=== PATIENT | male | born 1970 | race Caucasian/White ===

== ENCOUNTER 2017-04-10 11:25 | Emergency (ER) | payer MEDICAID, OTHER ==
[~2017-04-10] VITALS: Ht 160 cm; Wt 73.0 kg
[~2017-04-10 11:25] MED LIST: IBUP-974 PO
[2017-04-10 11:30] VITALS: BP 208/101
--- NOTE | 2017-04-10 11:50 | NUR ---
47M BIB SELF WITH C/O 6/10 "SHARP" INTERMITTENT NON RADIATING RIGHT UPPER CHEST PAIN WITH DIZZINESS X 1 DAY; PT STS HE WAS WALKING TO HIS CAR WHEN CP STARTED YESTERDAY; PT DENIES ANY RECENT INJURY OR TRAUMA; DENIES N/V/D; SKIN IS PINK/WARM/DRY; AOX4; RR ARE EVEN AND UNLABORED; PATIENT POSITIONED FOR COMFORT, BED DOWN; ER MD MADE AWARE OF PT STATUS. NAD. WILL CONTINUE TO MONITOR. Addendum: 04/10/17 at 1224 by MEDCE 47M BIB SELF WITH C/O 6/10 "SHARP" INTERMITTENT NON RADIATING RIGHT UPPER CHEST PAIN WITH DIZZINESS X 1 DAY; PT STS HE WAS WALKING TO HIS CAR WHEN CP STARTED YESTERDAY; PT DENIES ANY RECENT INJURY OR TRAUMA; PT STS PAIN NOW OCCURS AT RANDOM; PT APPEARS ANXIOUS. DENIES N/V/D; SKIN IS PINK/WARM/DRY; AOX4; RR ARE EVEN AND UNLABORED; PATIENT POSITIONED FOR COMFORT, BED DOWN; ER MD MADE AWARE OF PT STATUS. NAD. WILL CONTINUE TO MONITOR.
--- NOTE | 2017-04-10 11:52 | NUR ---
ER MD LLANES BY BEDSIDE
--- NOTE | 2017-04-10 12:00 | NUR ---
XRAY BY BEDSIDE
[2017-04-10 12:32] VITALS: BP 174/87
== END 2017-04-10 12:25 | disposition home or self-care (01) ==
LOC: MED 11:25
DX: R07.89 Other chest pain (principal); Z79.899 Other long term (current) drug therapy
CPT/HCPCS: 71010; 93005; 99284; Q0092

== ENCOUNTER 2017-06-25 20:06 | Emergency (ER) | payer SELFPAY ==
[~2017-06-25] VITALS: Ht 165.1 cm; Wt 72.8 kg
[2017-06-25 20:24] VITALS: BP 166/97
--- NOTE | 2017-06-25 21:06 | NUR ---
TO ER CHAIR A
[2017-06-25 21:18] VITALS: BP 166/97
--- NOTE | 2017-06-25 21:18 | NUR ---
Patient discharged with v/s stable. Pt DC'd by Dr. Thapa. Written and verbal after care instructions given and explained. Patient verbalized understanding. Ambulatory with steady gait. All questions addressed prior to discharge. Advised to follow up with PMD.
== END 2017-06-25 21:18 | disposition home or self-care (01) ==
LOC: MED 20:06
DX: R21 Rash and other nonspecific skin eruption (principal); T49.2X5A Adverse effect of local astringents and local detergents, initial encounter; Z79.899 Other long term (current) drug therapy; Y92.89 Other specified places as the place of occurrence of the external cause
CPT/HCPCS: 99281